=== PATIENT | female | born 1995 | race Two or more races ===

== ENCOUNTER 2020-05-24 17:46 | Emergency (ER) | payer OTHER ==
[~2020-05-24] VITALS: Ht 162.6 cm; Wt 108.0 kg
[2020-05-24] MEDS ORDERED: KETOROLAC 60MG/2ML VIAL IM STA (18:48)
[2020-05-24] MEDS ORDERED: HYDROCODONE/ACETAMINOPHEN 5/325MG TABLET PO STA (18:48)
[2020-05-24 18:53] VITALS: BP 116/82
[2020-05-24] MEDS ORDERED: IBUPROFEN 800MG TABLET PO ONE (19:15)
[2020-05-24 20:07] LABS: CLARITY URINE CLOUDY (CLEAR); COLOR URINE YELLOW (YELLOW); KETONES URINE NEGATIVE (NEGATIVE); LEUKOCYTE ESTERASE URINE 1+ (NEGATIVE); NITRITE URINE NEGATIVE (NEGATIVE); OCCULT BLOOD URINE TRACE (NEGATIVE); PH URINE 5.5 (4.5-8.0); PROTEIN URINE NEGATIVE (NEGATIVE); SPECIFIC GRAVITY URINE 1.023 (1.005-1.030); UROBILINOGEN URINE 0.2 E.U./dL (0.2-1.0)
[2020-05-24 20:30] LABS: CHLORIDE 105 mEq/L (98-107)
[2020-05-24 20:35] LABS: HCG SCREEN NEGATIVE
== END 2020-05-24 21:48 | disposition home or self-care (01) ==
LOC: ER 17:46
DX: S70.02XA Contusion of left hip, initial encounter (principal); S20.219A Contusion of unspecified front wall of thorax, initial encounter; V49.40XA Driver injured in collision with unspecified motor vehicles in traffic accident, initial encounter; Y93.89 Activity, other specified; Y92.89 Other specified places as the place of occurrence of the external cause; Y99.8 Other external cause status
CPT/HCPCS: 36415; 71045; 73502; 76705; 80053; 81003; 81025; 83690; 84703; 96372; 99285; J1885